=== PATIENT | female | born 1990 | race Caucasian/White ===

== ENCOUNTER 2020-05-17 07:50 | Inpatient (IN) | payer BC, OTHER ==
[2020-05-17] MEDS ORDERED: BUTORPHANOL TARTRATE 2 MG/ML VIAL IVPUSH ONE (08:04)
[2020-05-17] MEDS ORDERED: PROMETHAZINE HCL 25 MG/1 ML VIAL IVPB ONE (08:04)
[2020-05-17] MEDS: ELECTROLYTE-148 SOLN 1,000 ML IV SCH ×3 (08:15→19:45)
[2020-05-17] MEDS ORDERED: DEXTROSE 5%-LACTATED RINGERS 1,000 ML IV SCH (08:15)
[2020-05-17 09:54] VITALS: BMI 26.8
[2020-05-17] MEDS ORDERED: OXYTOCIN 30 UNITS in 0.9% NS 30 UNIT/500 ML INFUS.BAG IVPB ONE (09:56)
[2020-05-17] MEDS: OXYTOCIN 30 UNITS in 0.9% NS 30 UNIT/500 ML INFUS.BAG IVPB SCH (10:05)
[2020-05-17 10:54] LABS: BASO % 0.5 % (0-2.0); EOS % 0.3 % (0-4.5); HEMATOCRIT 38.5 % (32.4-45.2); HEMOGLOBIN 13.4 GM/dL (10.7-15.3); LYMPH % 12.4 % (8-40); MCH 33.9 pg (25.7-33.7); MCHC 34.7 g/dl (32.0-36.0); MEAN CELL VOLUME 97.8 fl (80-96); MEAN PLT VOLUME 8.1 fl (7.5-11.1); MONO % 5.5 % (3.8-10.2); NEUT % 81.3 % (42.8-82.8); PLATELET COUNT 198 K/MM3 (134-434); RBC 3.94 M/mm3 (3.60-5.2); RDW 12.5 % (11.6-15.6); WHITE BLOOD COUNT 7.6 K/mm3 (4.0-10.0)
[2020-05-17 11:00] LABS: INR 0.88 (0.83-1.09); PROTHROMBIN TIME (PATIENT) 10.9 SEC (9.7-13.0)
[2020-05-17 11:03] LABS: ACTIVATED PTT 25.1 SECONDS (25.2-36.5)
[2020-05-17 11:19] LABS: POTASSIUM 3.8 mmol/L (3.5-5.1)
[2020-05-17 11:26] LABS: BLOOD UREA NITROGEN 11.4 mg/dL (7-18)
[2020-05-17 11:27] LABS: CALCIUM 8.5 mg/dL (8.5-10.1)
[2020-05-17 11:30] LABS: CREATININE 0.7 mg/dL (0.55-1.3)
[2020-05-17] MEDS ORDERED: PCA PUMP NR ONE (18:50)
[2020-05-17] MEDS ORDERED: FENTANYL/BUPIVACAINE/NS/PF - PCEA - 50 ML DISP.SYRIN EP ONE ×2 (18:50→23:04)
[2020-05-17] MEDS ORDERED: BUPIVACAINE HCL/PF 0.25% (2.5MG/ML) 10 ML VIAL ONE (18:58)
[2020-05-17] MEDS: FENTANYL/BUPIVACAINE/NS/PF - PCEA - 50 ML DISP.SYRIN EP SCH (19:15)
[2020-05-17] MEDS ORDERED: NALOXONE HCL 0.4 MG/ML VIAL IVPUSH PRN (19:30)
[2020-05-18] MEDS ORDERED: OXYTOCIN 20 UNITS in 0.9% NS 20 UNIT/1,000 ML INFUS.BAG IV ONE ×2 (00:21→04:40)
[2020-05-18] MEDS ORDERED: BUPIVACAINE HCL/PF 0.25% (2.5MG/ML) 10 ML VIAL ONE (00:31)
[2020-05-18] MEDS: OXYTOCIN 20 UNITS in 0.9% NS 20 UNIT/1,000 ML INFUS.BAG IV SCH (02:35)
[2020-05-18] MEDS ORDERED: WITCH HAZEL 50% (TUCKS) 40 PAD/JAR PAD TP PRN (02:49)
[2020-05-18] MEDS ORDERED: BENZOCAINE 28 GM HEMORRHOIDAL OINTMENT TP PRN (02:49)
[2020-05-18] MEDS ORDERED: BISACODYL 10 MG SUPP.RECT RC PRN (02:49)
[2020-05-18] MEDS ORDERED: BENZOCAINE 20% 57 GM BOTTLE TP PRN (02:49)
[2020-05-18] MEDS ORDERED: ACETAMINOPHEN 325 MG TABLET (FP) PO PRN (02:49)
[2020-05-18] MEDS ORDERED: METHYLERGONOVINE MALEATE 0.2 MG/1 ML AMP IM PRN (02:49)
[2020-05-18] MEDS ORDERED: METHYLERGONOVINE MALEATE 0.2 MG/1 ML AMP IM ONE (02:50)
[2020-05-18] MEDS ORDERED: METHYLERGONOVINE MALEATE 0.2 MG TABLET (FP) ONE ×2 (02:51→02:52)
[2020-05-18] MEDS ORDERED: oxyCODONE HCL 5 MG TABLET PO PRN (02:53)
[2020-05-18] MEDS ORDERED: METHYLERGONOVINE MALEATE 0.2 MG TABLET (FP) PO ONE (03:00)
[2020-05-18 03:05] LABS: CORD HCO3 23.7 mmHg (20-29); CORD PCO2 56.4 mmHg (30-78); CORD pH 7.242 (7.14-7.44)
[2020-05-18 03:08] LABS: CORD BASE EXCESS -4.7 mmol/L (0-2); CORD HCO3 21.2 mmHg (20-29); CORD PCO2 41.8 mmHg (30-78); CORD pH 7.322 (7.14-7.44)
[2020-05-18] MEDS: FERROUS SO4 325 MG TABLET (FP) PO SCH ×2 (09:46→22:14)
[2020-05-18] MEDS: PRENATAL VITAMINS W/ FOLIC ACID TABLET (FP) PO SCH (09:46)
[2020-05-18] MEDS: IBUPROFEN 600 MG TABLET (FP) PO PRN ×2 (15:16→19:36)
[2020-05-18 22:38] VITALS: BP 108/57
[2020-05-18] MEDS: ELECTROLYTE-148 SOLN 1,000 ML IV SCH (23:23)
[2020-05-18] MEDS: OXYTOCIN 30 UNITS in 0.9% NS 30 UNIT/500 ML INFUS.BAG IVPB SCH (23:23)
[2020-05-18] MEDS: FENTANYL/BUPIVACAINE/NS/PF - PCEA - 50 ML DISP.SYRIN EP SCH (23:24)
[2020-05-19] MEDS: IBUPROFEN 600 MG TABLET (FP) PO PRN ×3 (01:31→10:06)
[2020-05-19] MEDS: OXYTOCIN 20 UNITS in 0.9% NS 20 UNIT/1,000 ML INFUS.BAG IV SCH (04:47)
[2020-05-19] MEDS: PRENATAL VITAMINS W/ FOLIC ACID TABLET (FP) PO SCH (10:06)
[2020-05-19] MEDS: FERROUS SO4 325 MG TABLET (FP) PO SCH (10:06)
[2020-05-19 10:19] LABS: BASO % 0.4 % (0-2.0); EOS % 1.4 % (0-4.5); HEMATOCRIT 36.7 % (32.4-45.2); HEMOGLOBIN 12.5 GM/dL (10.7-15.3); LYMPH % 15.9 % (8-40); MCH 33.5 pg (25.7-33.7); MEAN CELL VOLUME 98.5 fl (80-96); MEAN PLT VOLUME 8.3 fl (7.5-11.1); MONO % 4.6 % (3.8-10.2); NEUT % 77.7 % (42.8-82.8); PLATELET COUNT 178 K/MM3 (134-434); RBC 3.73 M/mm3 (3.60-5.2); RDW 12.9 % (11.6-15.6)
[2020-05-19 12:43] VITALS: PULSE 74; TEMP 97.3
[2020-05-19] MEDS ORDERED: SENNOSIDES/DOCUSATE COMBO (SENNA PLUS) TABLET (UD) PO PRN (22:00)
== END 2020-05-19 12:25 | disposition home or self-care (01) | DRG 807 ==
LOC: JLDR 07:50 → J3W 05-18 05:00
PROVIDERS: ADMIT Obstetrics & Gynecology; ATTEND Obstetrics & Gynecology
PROC: 10E0XZZ Delivery of Products of Conception, External Approach (ICD-10-PCS; principal; 2020-05-18)
DX: O36.63X0 Maternal care for excessive fetal growth, third trimester, not applicable or unspecified (principal); Z37.0 Single live birth; Z3A.39 39 weeks gestation of pregnancy
CPT/HCPCS: 36415; 36600; 59409; 80048; 82803; 85025; 85610; 85730; 86780; 86850; 86900; 86901; C9803; U0003